=== PATIENT | female | born 1965 | race Caucasian/White ===

== ENCOUNTER 2020-06-09 08:10 | Day surgery (SDC) | payer OTHER ==
[2020-06-09 08:04] LABS: Specific Gravity 1.025 (1.005-1.030); Urine Appearance CLEAR; Urine Bilirubin NEGATIVE (NEG); Urine Blood TRACE (NEG); Urine Color YELLOW; Urine Glucose NEGATIVE (NEG); Urine Protein NEGATIVE (NEG); Urine Specific Gravity 1.025 (1.005-1.030); Urine Urobilinogen 0.2 mg/dL (0.2-1.0); Urine pH 5.5 (5.0-7.0)
[2020-06-09 08:05] LABS: Urine Microscopic Reflex ORDER UMIC
--- NOTE | 2020-06-09 08:17 | RAD REPORT ---
EXAM DESCRIPTION: Vanita James (2 Views)06/09/2020 8:08 am CLINICAL HISTORY: Preop for breast surgery COMPARISON: None FINDINGS: The lungs appear clear of acute infiltrate. The heart is normal size IMPRESSION: No acute abnormalities displayed
[2020-06-09] MEDS ORDERED: CEFAZOLIN SODIUM 1 GM/VIAL ONE (08:35)
[2020-06-09] MEDS ORDERED: Ringers Lactate 1,000 ML IV ONE ×4 (08:35→15:22)
[2020-06-09] MEDS ORDERED: LIDOCAINE 1% W/EPI 1:100,000 MDV 20 ML VIAL ONE (08:35)
[2020-06-09] MEDS ORDERED: CEFAZOLIN/SWI 1gm 1 GM/10 ML SYR ONE (08:35)
[2020-06-09] MEDS ORDERED: EPINEPHRINE/PF 1 MG/ML AMP ONE (08:35)
[2020-06-09] MEDS ORDERED: NS 0.9% VIAL 40 ML ONE (08:35)
[2020-06-09] MEDS ORDERED: GENTAMICIN SULF 80 MG/2ML INJ ONE (08:35)
[2020-06-09] MEDS ORDERED: Mastisol Adhesive Liq ONE (08:36)
[2020-06-09] MEDS ORDERED: NA CHLORIDE 0.9% 2,000 ML ONE (08:36)
[2020-06-09] MEDS ORDERED: BACITRACIN 50000 UNIT VIAL ONE (08:36)
[2020-06-09 08:49] LABS: Urine Bacteria 20-50 /HPF (<20); Urine Culture Reflex Order REFLEXED
[2020-06-09] MEDS ORDERED: LIDOCAINE 2% MPF 5 ML VIAL ONE (09:25)
[2020-06-09] MEDS ORDERED: propofoL 200 MG/20 ML VIAL IV ONE (09:25)
[2020-06-09] MEDS ORDERED: FENTANYL CITR 250 MCG/5 ML ONE (09:26)
[2020-06-09] MEDS ORDERED: ROCURONIUM 50 MG/5 ML VIAL IV ONE ×2 (09:26→14:26)
[2020-06-09] MEDS ORDERED: ONDANSETRON 4 MG/2 ML VIAL ONE ×2 (09:28→16:17)
[2020-06-09] MEDS ORDERED: dexAMETHasone 4 MG/ML VIAL ONE (09:37)
[2020-06-09] MEDS ORDERED: SCOPOLAMINE HYDROBROMIDE PATCH TD ONE (10:06)
[2020-06-09] MEDS ORDERED: NS 0.9% VIAL 10 ML ONE (11:06)
[2020-06-09] MEDS ORDERED: VECURONIUM 10 MG/VIAL IV ONE (11:06)
[2020-06-09] MEDS ORDERED: KETOROLAC 30 MG/ML INJ ONE (14:02)
[2020-06-09] MEDS ORDERED: GLYCOPYRROLATE 0.2 MG/ML SYR ONE (14:41)
[2020-06-09] MEDS ORDERED: NEOSTIGMINE 1 MG/ML -5 ML ONE (14:41)
[2020-06-09] MEDS ORDERED: FENTANYL CITR 100 MCG/2 ML ONE (14:48)
[2020-06-09] MEDS ORDERED: Phenylephrine HCl 10 MG/ML 1 ML VIAL ONE (14:56)
[2020-06-09] MEDS ORDERED: MORPHINE 10 MG/ML VIAL ONE (15:46)
[2020-06-09] MEDS: HYDROMORPHONE HCL 1 MG/ML INJ ONE ×2 (16:05→16:16)
[2020-06-09] MEDS ORDERED: HYDROMORPHONE HCL 1 MG/ML INJ ONE (16:44)
[2020-06-09 17:10] VITALS: BP 105/53; TEMP 96.8; O2SAT 93
[2020-06-09] MEDS ORDERED: CODEINE 30MG/APAP 300MG TAB ONE (17:29)
--- NOTE | 2020-06-13 09:53 | OP ---
Surgeon: Chad Keane MD Preoperative Diagnosis: Breast enlargement and descent and abdominal lipodystrophy. Postoperative Diagnosis: Breast enlargement and descent and abdominal lipodystrophy. Procedure Performed: Breast lift and reduction and liposuction. Anesthesia: General. Procedure In Detail: After satisfactory induction of general anesthesia, the chest was prepped with DuraPrep, dry sterile drapes in the usual manner. A cm template was used to outline the right and left areolas. Transverse curvilinear incision was made. The intervening skin was de-epithelialized with a dermabrader and EpiCut. Right side was approached first. Electrocautery was used to make a transverse incision. The flap was elevated and thinned to 1.5 cm. Elevation continued towards the sternum, clavicle, anterior axillary line. Then the inferior incision was made and then lateral excess fat was removed. This was done with scalpel and electrocautery. The deep tissue was formed with a cone with 2-0 PDS sutures and then straps were elevated at 12 o'clock, 1:30, and 3 o'clock position. Straps were then woven in and out of the pectoralis major muscle, back to the base of the cone, back to the base of pectoralis muscle, back to base of cone. This was done for the 12 o'clock and 1:30 strap. 3 o'clock strap was sewn over the sternum at 3 o'clock position with 2-0 Ethibond. Wounds were temporarily stapled shut. Left side was done in identical manner. The amount removed from the right side 12, left side was 3 cm. Dog ears were marked out, cut out. The wound was irrigated with antibiotic solution. A 10 BLAYNE was brought out of the axilla, sewn in place with 2-0 silk. Wound was closed with 3-0 Vicryl subcu, 3-0 PDS running subcuticular tied in the vertical meridian of the breast. Right side done and left side in identical manner. The patient was sat up. Site for new nipple-areolar complex was marked out. Tissue was cored out with a 50 mm template and then closed in layers of 4- 0 PDS followed by 4-0 PDS running subcuticular. All the instruments were replaced and the abdomen was prepped in the usual manner and then, an incision was made at the umbilicus and anterior iliac spine bilaterally. A 2.5 mm cannula was introduced in the midline. After this was done, the umbilical incision was closed with 4-0 PDS. The other wounds were left open and closed with Steri-Strips. Tincture of benzoin and Steri-Strips were applied over the breast, maulage fluffs and Justin wrap. A girdle was applied over the abdomen. The patient tolerated the procedure well and returned to recovery. JOHNY/CHAPO Voice ID: [id number] Report ID: [id number] NICHOLAS
== END 2020-06-09 18:13 | disposition home or self-care (01) ==
LOC: OR 08:10
PROVIDERS: ATTEND Specialist
PROC: 0J083ZZ Alteration of Abdomen Subcutaneous Tissue and Fascia, Percutaneous Approach (ICD-10-PCS; 2020-06-09)
PROC: 0H0V0ZZ Alteration of Bilateral Breast, Open Approach (ICD-10-PCS; principal; 2020-06-09 09:00)
PROC: 0H0V0ZZ Alteration of Bilateral Breast, Open Approach (ICD-10-PCS; 2020-06-09 09:00)
DX: N64.81 Ptosis of breast (principal); N62 Hypertrophy of breast; E88.1 Lipodystrophy, not elsewhere classified
CPT/HCPCS: 93005; 87088; 87086; 81025; 88305; 87077; 87186; 71046; 19316; 19318; 15877; J2704; J1100; J0171; J2370; J1580; J3010 ×2; J1170 ×2; J2710; J0690 ×2; J7120 ×4; J7030; J2405 ×2; 81003; 81015